=== PATIENT | female | born 1950 | race Caucasian/White ===

== ENCOUNTER 2016-04-21 15:30 | Emergency (ER) | payer MEDICARE, OTHER ==
[2016-04-21 16:12] LABS: HEMOGLOBIN 14.7 gm/dl (12.3-15.3); RED BLOOD COUNT 4.67 M/UL (4.00-5.10); WHITE BLOOD COUNT 10.3 K/UL (4.5-11.0)
[2016-04-21 16:35] LABS: BUN/CREATININE RATIO 18 (0-10)
== END 2016-04-21 19:17 | disposition home or self-care (01) ==
LOC: ER1 15:30
PROVIDERS: Emergency Medicine
DX: I47.1 Supraventricular tachycardia (principal); I25.10 Atherosclerotic heart disease of native coronary artery without angina pectoris; F17.200 Nicotine dependence, unspecified, uncomplicated; Z95.5 Presence of coronary angioplasty implant and graft; R07.9 Chest pain, unspecified
CPT/HCPCS: 36415; 71010; 80053; 82550; 82553; 83735; 83874; 84439; 84443; 84484; 85025; 85379; 85610; 85730; 93005; 96361; 96374; 99291; J7050; Q9963

== ENCOUNTER → 2020-05-03 | Outpatient (CLI) | payer MEDICARE, OTHER ==
[~2020-05-03] MED LIST: PREDNISONE 50 M50 MG PO; PROVENTIL HFA6.7 GM INH; ZITHROMAX250 MG PO
== END ==
LOC: MAMO 07:50
DX: Z53.9 Procedure and treatment not carried out, unspecified reason (principal)

== ENCOUNTER → 2020-06-06 | Outpatient (CLI) | payer MEDICARE, OTHER | LOC: US 13:30 → MAMO 14:17 | DX: Z12.31 Encounter for screening mammogram for malignant neoplasm of breast (principal) | CPT/HCPCS: 77063; 77067 ==

== ENCOUNTER 2020-11-27 04:32 | Emergency (ER) | payer MEDICARE, OTHER ==
[2020-11-27 05:19] LABS: HEMOGLOBIN 13.8 gm/dl (12.3-15.3); RED BLOOD COUNT 4.44 M/UL (4.00-5.10); WHITE BLOOD COUNT 6.6 K/UL (4.5-11.0)
[2020-11-27 06:02] LABS: BUN/CREATININE RATIO 7 (0-10)
[2020-11-27] MEDS ORDERED: ZITHROMAX250 MG PO (08:28)
== END 2020-11-27 08:45 | disposition home or self-care (01) ==
LOC: ER1 04:32
PROVIDERS: Family Medicine
DX: J44.9 Chronic obstructive pulmonary disease, unspecified (principal); R91.1 Solitary pulmonary nodule; R79.1 Abnormal coagulation profile; F17.200 Nicotine dependence, unspecified, uncomplicated
CPT/HCPCS: 36600; 71045; 80053; 82550; 82553; 82803; 82962; 83874; 83880; 84484; 85025; 85379; 93005; 94664; 94760; 99285; Q9967

== ENCOUNTER 2021-05-20 14:58 | Emergency (ER) | payer MEDICARE, OTHER ==
[2021-05-20 16:11] LABS: HEMOGLOBIN 12.9 gm/dl (12.3-15.3); RED BLOOD COUNT 4.09 M/UL (4.00-5.10); WHITE BLOOD COUNT 10.7 K/UL (4.5-11.0)
[2021-05-20 17:06] LABS: BUN/CREATININE RATIO 21 (0-10)
[2021-05-20] MEDS ORDERED: PREDNISONE20 MG PO (21:15)
[2021-05-20] MEDS ORDERED: IPRAT-ALBUT 0.5-3 ML INH (21:15)
[2021-05-20] MEDS ORDERED: CEPHALEXIN500 M1 PO (21:15)
[2021-05-20] MEDS ORDERED: DOXYCYCLINE HY100 M2 PO (21:15)
== END 2021-05-20 22:07 | disposition home or self-care (01) ==
LOC: ER1 14:58
PROVIDERS: Physician Assistant
DX: J44.0 Chronic obstructive pulmonary disease with (acute) lower respiratory infection (principal); J44.1 Chronic obstructive pulmonary disease with (acute) exacerbation; J18.9 Pneumonia, unspecified organism; N39.0 Urinary tract infection, site not specified; Z20.822 Contact with and (suspected) exposure to COVID-19; I11.9 Hypertensive heart disease without heart failure; I25.2 Old myocardial infarction; F17.210 Nicotine dependence, cigarettes, uncomplicated
CPT/HCPCS: 0240U; 36600; 71045; 80053; 81001; 82550; 82553; 82803; 83605; 83880; 84484; 85025; 87040; 87086; 93005; 94664; 99285; Q9967

== ENCOUNTER 2021-07-07 16:04 | Emergency (ER) | payer MEDICARE, OTHER ==
[~2021-07-07 16:04] MED LIST changes: +CEPHALEXIN500 M1 PO; +DOXYCYCLINE HY100 M2 PO; +IPRAT-ALBUT 0.5-3 ML INH; +PREDNISONE20 MG PO
[2021-07-07 19:11] LABS: HEMOGLOBIN 13.3 gm/dl (12.3-15.3); RED BLOOD COUNT 4.26 M/UL (4.00-5.10); WHITE BLOOD COUNT 8.5 K/UL (4.5-11.0)
[2021-07-07] MEDS ORDERED: PREDNISONE 20 M20 MG PO (19:32)
[2021-07-07] MEDS ORDERED: VENTOLIN/PROVE0.5 ML INH (19:44)
== END 2021-07-07 20:07 | disposition home or self-care (01) ==
LOC: ER1 16:04
PROVIDERS: Nurse Practitioner
DX: J43.9 Emphysema, unspecified (principal); F17.210 Nicotine dependence, cigarettes, uncomplicated; I25.2 Old myocardial infarction; I10 Essential (primary) hypertension; Z95.5 Presence of coronary angioplasty implant and graft; Z20.822 Contact with and (suspected) exposure to COVID-19
CPT/HCPCS: 0240U; 36600; 71045; 80053; 82550; 82553; 82803; 84439; 84443; 84484; 85025; 93005; 96374; 99285; J2930